=== PATIENT | female | born 1950 | race Two or more races ===

== ENCOUNTER → 2022-05-19 | Day surgery (SDC) | payer OTHER ==
[~2022-05-19] MED LIST: CYMBALTA30 MG PO; ENALAPRIL MALEAT5 MG PO; PERCOCET 5-3251 EACH PO; PROTONIX40 M1 PO
== END | disposition home or self-care (01) ==
LOC: ADM 05-17 11:45 → CIR.AMB 05:00
PROVIDERS: ATTEND Surgery
DX: K64.2 Third degree hemorrhoids (principal); Z20.822 Contact with and (suspected) exposure to COVID-19; I10 Essential (primary) hypertension; G62.9 Polyneuropathy, unspecified; K62.5 Hemorrhage of anus and rectum; Z85.3 Personal history of malignant neoplasm of breast